=== PATIENT | male | born 1980 | race Caucasian/White ===

== ENCOUNTER → 2020-11-12 | Outpatient (CLI) | payer OTHER ==
[~2020-11-12] MED LIST: AMBI10TA PO; ATIV2TAB PO; BACL1TAB9 PO; DEPA500T2 PO; DIAZ10TA2 PO; LYRI75CA PO; PAME25CA PO; SOMA350T PO; ZONI100C17 PO; hydrocodone OR
--- NOTE | 2020-11-13 21:01 | REPVR ---
PROCEDURE INFORMATION: Exam: MR Cervical Spine Without Contrast Exam date and time: 11/12/2020 10:40 AM Age: 40 years old Clinical indication: Neck pain; Prior surgery; Surgery date: 6+ months; Additional info: Neck pain, and lbp bowel/bladder issues TECHNIQUE: Imaging protocol: Multiplanar magnetic resonance images of the cervical spine without contrast. COMPARISON: CR Spine,Cervical 2 or 3 views 10/09/2014 8:51 AM FINDINGS: Chronic ACDF changes from C4 through C7. Cervical vertebral body heights are intact. The dens is intact. No abnormal marrow signal. No cord compression, expansion, or abnormal cord signal. Visualized structures of the posterior fossa are unremarkable. Soft tissues are unremarkable. C2-C3: Uncovertebral spurring causes moderate left foraminal narrowing. No significant canal narrowing. C3-C4: Posterior central disc protrusion and uncovertebral spurring cause mild canal narrowing with moderate right and severe left foraminal narrowing. C4-C5: Status post ACDF. No significant canal or foraminal narrowing. C5-C6: Status post ACDF. No significant canal or foraminal narrowing. C6-C7: Status post ACDF. Uncovertebral spurring causes persistent mild bilateral foraminal narrowing. No significant canal narrowing. C7-T1: No significant canal or foraminal narrowing. IMPRESSION: Multilevel chronic postoperative and spondylotic changes of the cervical spine, as detailed above. Electronically signed by: Cristian Bryant On 11/13/2020 21:01:26 PM
--- NOTE | 2020-11-13 21:05 | REPVR ---
PROCEDURE INFORMATION: Exam: MR Lumbar Spine Without Contrast Exam date and time: 11/12/2020 11:03 AM Age: 40 years old Clinical indication: Low back pain; Additional info: Neck pain, and lbp bowel/bladder issues TECHNIQUE: Imaging protocol: Multiplanar magnetic resonance images of the lumbar spine without intravenous contrast. COMPARISON: MRI-Spine, L.S. without con 01/28/2014 3:43 PM FINDINGS: Vertebral body heights are maintained. Multilevel Schmorl's node phenomena. No abnormal marrow signal. No cord compression. No abnormal cord signal. Conus medullaris terminates at the T12-L1 level. Paravertebral soft tissues are unremarkable. L1-L2: Central disc protrusion causes mild canal narrowing. No significant foraminal narrowing L2-L3: No significant canal or foraminal narrowing. L3-L4: Broad-based disc bulge causes mild canal narrowing and mild bilateral foraminal narrowing. L4-L5: Left foraminal disc protrusion superimposed over broad-based disc bulge causes moderate left foraminal narrowing with impingement upon the exiting left L4 nerve root. L5-S1: Right foraminal disc protrusion causes mild to moderate foraminal narrowing. Small right foraminal disc annular tear. IMPRESSION: Multilevel spondylotic changes of the lumbar spine, including a left foraminal disc protrusion at L4-L5 impinging the exiting left L4 nerve root. Electronically signed by: Cristian Bryant On 11/13/2020 21:05:22 PM
== END ==
LOC: M PLAIMG 09:46
PROVIDERS: ATTEND Psychiatry & Neurology Neurology
DX: M54.2 Cervicalgia (principal); M54.5 Low back pain